=== PATIENT | female | born 1990 | race Caucasian/White ===

== ENCOUNTER 2018-07-09 13:17 | Emergency (ER) | payer OTHER, SELFPAY ==
[2018-07-09 13:34] VITALS: BP 105/69; PULSE 113; RESP 20; TEMP 36.9; O2SAT 97
--- NOTE | 2018-07-09 15:12 | ED.SKABFB ---
HPI - Skin/Abscess/Foreign Bdy <KALI Murry - Last Filed: 07/09/18 22:06> General Chief complaint: Skin/Abscess/Foreign Body Stated complaint: BAD MASTITIS Time Seen by Provider: 07/09/18 15:12 Source: patient Mode of arrival: ambulatory Limitations: no limitations History of Present Illness HPI narrative: 28-year-old female history of is a nonsmoker. She is currently 12 weeks . She had triplets via as 12 weeks ago at . She reports that she has had increased pain and redness to her left breast since yesterday. She called down to and they prescribed her dicloxacillin she states she has been taking that for 24 hr and her states her symptoms has worsened. She is able to express milk. She states she has had fever and chills as well. Positive p.o. intake. She denies any urinary symptoms. She denies any abdominal pain. No chest pain no shortness of breath Related Data Home Medications Medication Instructions Recorded Confirmed PNV cmb#95-ferrous fumarate-FA 1 tab PO QPM 07/09/18 07/10/18 [] [place]/Lecithin 1 tab PO DAILY 07/09/18 07/10/18 dicloxacillin 500 mg PO QID 07/09/18 07/10/18 Allergies Allergy/AdvReac Type Severity Reaction Status Date / Time No Known Drug Allergies Allergy Verified 07/10/18 09:33 Review of Systems <KALI Murry - Last Filed: 07/09/18 22:06> Constitutional Reports chills, Reports fever(s), Denies lethargy and Denies weakness Eyes Denies change in vision, Denies eye discharge, Denies irritation and Denies loss of vision ENT Ears, Nose, Mouth, and Throat: Denies change in voice, Denies neck pain and Denies sore throat Cardiovascular Denies chest pain, Denies irregular heart rhythm, Denies lightheadedness, Denies palpitations, Denies dyspnea, Denies dyspnea on exertion and Denies orthopnea Respiratory Denies cough, Denies dyspnea, Denies dyspnea on exertion and Denies wheezing Genitourinary Denies hematuria, Denies flank pain, Denies urinary incontinence and Denies urinary urgency Musculoskeletal Denies neck pain Integumentary/Breasts Comments: Redness and pain into her left breast Neurologic Denies confusion, Denies loss of vision and Denies weakness Psychiatric Denies anxiety, Denies confusion, Denies depression, Denies homicidal ideation and Denies suicidal ideation Endocrine Denies palpitations Hematologic/Lymphatic Denies easy bruising Allergic/Immunologic Denies wheezing Exam <KALI Murry - Last Filed: 07/09/18 22:06> Initial Vital Signs Initial Vital Signs: Vital Signs Temperature 98.5 F 07/09/18 13:34 Pulse Rate 113 H 07/09/18 13:34 Respiratory Rate 07/09/18 13:34 Blood Pressure 105/69 07/09/18 13:34 Pulse Oximetry 97 07/09/18 13:34 Const General: cooperative and well developed Nutritional Appearance: well nourished Orientation: alert, awake, oriented x3 and not confused HENMT Mouth: oral mucosae normal, oropharynx normal and moist mucous membranes Eyes Conjunctivae: conjunctivae normal Sclera: sclerae normal Pupils: PERRL EOM: EOM intact bilaterally Neck Neck: normal visual inspection, trachea midline, No lymphadenopathy, No midline deformity and No JVD Lymphatic: No lymphedema Chest Breast inspection: abnormal inspection of the breast Other: Left breast with pain and redness to the 12 o'clock position of the breast. There is firmness to that area no fluctuance or induration appreciated. No nipple discharge Resp Effort & Inspection: normal respiratory effort, able to speak in complete sentences, no respiratory distress and no use of accessory muscles Auscultation: clear to auscultation bilaterally, no rales, no rhonchi and no wheezes Cardio Rate: regular rate Rhythm: regular rhythm Heart Sounds: no click, no gallops, no murmurs and no rubs Pulses: normal peripheral pulses Neuro General: alert, oriented x3, gait normal and no focal motor deficits Speech: speech normal <Susu Edouard DO - Last Filed: 07/12/18 08:12> Initial Vital Signs Initial Vital Signs: Vital Signs Temperature 98.5 F 07/09/18 13:34 Pulse Rate 113 H 07/09/18 13:34 Respiratory Rate 07/09/18 13:34 Blood Pressure 105/69 07/09/18 13:34 Pulse Oximetry 97 07/09/18 13:34 Course <KALI Murry Last Filed: 07/09/18 22:06> Orders Ordered: Discontinued Medications Acetaminophen (Tylenol) 650 mg PO NOW ONE Stop: 07/09/18 18:19 Last Admin: 07/09/18 18:29 Dose: 650 mg Sodium Chloride (Normal Saline 0.9%) 500 mls @ 1,000 mls/hr IV BOLUS ONE Stop: 07/09/18 16:43 Last Infusion: 07/09/18 18:38 Dose: 0 mls/hr Admin: 07/09/18 16:36 Dose: 1,000 mls/hr Clindamycin Phosphate (Cleocin) 600 mg in 50 mls @ 50 mls/hr IV NOW ONE Stop: 07/09/18 18:09 Last Infusion: 07/09/18 18:24 Dose: 0 mls/hr Admin: 07/09/18 17:25 Dose: 50 mls/hr Potassium Chloride (Klor-Con M20) 20 meq PO DAILYCC [facility] Last Admin: 07/09/18 18:31 Dose: 20 meq Vital Signs - 8 hr 07/09/18 16:28 07/09/18 17:41 07/09/18 19:40 Temperature 100.6 F H 101.8 F H Pulse Rate 103 H 108 H 121 H Respiratory Rate 16 16 15 Blood Pressure 109/63 Blood Pressure [Left Arm] 108/61 124/70 Pulse Oximetry 100 100 97 <Susu Edouard DO - Last Filed: 07/12/18 08:12> Orders Ordered: Discontinued Medications Acetaminophen (Tylenol) 650 mg PO NOW ONE Stop: 07/09/18 18:19 Last Admin: 07/09/18 18:29 Dose: 650 mg Sodium Chloride (Normal Saline 0.9%) 500 mls @ 1,000 mls/hr IV BOLUS ONE Stop: 07/09/18 16:43 Last Infusion: 07/09/18 18:38 Dose: 0 mls/hr Admin: 07/09/18 16:36 Dose: 1,000 mls/hr Clindamycin Phosphate (Cleocin) 600 mg in 50 mls @ 50 mls/hr IV NOW ONE Stop: 07/09/18 18:09 Last Infusion: 07/09/18 18:24 Dose: 0 mls/hr Admin: 07/09/18 17:25 Dose: 50 mls/hr Potassium Chloride (Klor-Con M20) 20 meq PO DAILYCC [facility] Last Admin: 07/09/18 18:31 Dose: 20 meq Vital Signs - 8 hr 07/09/18 16:28 07/09/18 17:41 07/09/18 19:40 Temperature 100.6 F H 101.8 F H Pulse Rate 103 H 108 H 121 H Respiratory Rate 16 16 15 Blood Pressure 109/63 Blood Pressure [Left Arm] 108/61 124/70 Pulse Oximetry 100 100 97 MDM - Skin/Abscess/Foreign Bdy <KALI Murry - Last Filed: 07/09/18 22:06> Lab Data Result diagrams: 07/09/18 16:10 07/09/18 16:10 Lab Results 07/09/18 07/09/18 07/09/18 Range/Units 16:10 16:10 16:10 WBC 13.6 H (4.5-11.0) X10^3/uL RBC 4.93 (4.0-5.2) X10^6/uL Hgb 13.7 (12.0-16.0) g/dL Hct 41.1 (36-46) % MCV 83.4 (80-100) fL MCH 27.7 (26-34) PG MCHC 33.2 (30-36) % RDW 15.3 H (11.6-14.8) % Plt Count 176 (150-400) X10^3/uL Neut % (Auto) 77.9 H (50-75) % Lymph % (Auto) 13.3 L (25-40) % [place] % (Auto) 8.1 (3-14) % Eos % (Auto) 0.5 L (2-4) % Baso % (Auto) 0.2 (0-2) % Neut # (Auto) 14629 H (6492-1851) /uL Sodium 143 (137-145) mmol/L Potassium 3.3 L (3.4-5.1) mmol/L Chloride 105 (98-107) mmol/L Carbon Dioxide 26 (22-32) mmol/L BUN 12 (7-17) mg/dL Creatinine 0.60 (0.52-1.04) mg/dL Estimated GFR > 60.0 (>60) mL/min BUN/Creatinine Ratio 20.0 (6-22) Glucose 112 H (70-100) mg/dL Lactate (0.7-2.1) mmol/L Calcium 8.8 (8.4-10.2) mg/dL Total Bilirubin 0.3 (0.2-1.3) mg/dL AST 26 (14-36) IU/L ALT 30 (9-52) IU/L Alkaline Phosphatase 116 (38-126) U/L Total Protein 7.2 (6.3-8.2) g/dL Albumin 4.4 (3.5-5.0) g/dL Globulin 2.8 (1.7-4.1) g/dL Albumin/Globulin Ratio 1.6 (1.0-2.8) Procalcitonin 0.06 (<0.5) ng/mL 07/09/18 Range/Units 16:10 WBC (4.5-11.0) X10^3/uL RBC (4.0-5.2) X10^6/uL Hgb (12.0-16.0) g/dL Hct (36-46) % MCV (80-100) fL MCH (26-34) PG MCHC (30-36) % RDW (11.6-14.8) % Plt Count (150-400) X10^3/uL Neut % (Auto) (50-75) % Lymph % (Auto) (25-40) % [place] % (Auto) (3-14) % Eos % (Auto) (2-4) % Baso % (Auto) (0-2) % Neut # (Auto) (1410-3339) /uL Sodium (137-145) mmol/L Potassium (3.4-5.1) mmol/L Chloride (98-107) mmol/L Carbon Dioxide (22-32) mmol/L BUN (7-17) mg/dL Creatinine (0.52-1.04) mg/dL Estimated GFR (>60) mL/min BUN/Creatinine Ratio (6-22) Glucose (70-100) mg/dL Lactate 1.0 (0.7-2.1) mmol/L Calcium (8.4-10.2) mg/dL Total Bilirubin (0.2-1.3) mg/dL AST (14-36) IU/L ALT (9-52) IU/L Alkaline Phosphatase (38-126) U/L Total Protein (6.3-8.2) g/dL Albumin (3.5-5.0) g/dL Globulin (1.7-4.1) g/dL Albumin/Globulin Ratio (1.0-2.8) Procalcitonin (<0.5) ng/mL Urine Dip Bedside Urine Glucose Negative Bedside Urine Bilirubin - Negative Bedside Urine Ketone + 15 Urine Specific [place] 1.015 Bedside Urine Occult Blood ++ Bedside Urine pH 6.0 Bedside Urine Protein - Negative Bedside Urine Urobilinogen - Negative Bedside Urine Nitrite - Negative Bedside Urine Leukocytes - Negative Esterase MDM Narrative Medical decision making narrative: CBC shows elevated white count of 13.6. Chem panel shows hypokalemia of 3.3. Ultrasound of the left breast was obtained and shows echogenic area to the area of erythema to the left breast. I was contacted by Radiology who states that is suspicious for a breast abscess discussed case with surgery Dr. Santos who came and evaluated patient. He states that he will follow up with her tomorrow. She was given clindamycin IV in the emergency room. Milk cultures and blood cultures are pending. [id number] Tylenol as needed for any discomfort. Plenty of fluids. For any worsening symptoms return to the emergency room. Follow up with primary care provider. Follow up with surgery. <Susu Edouard, DO - Last Filed: 07/12/18 08:12> Lab Data Lab Results 07/09/18 07/09/18 07/09/18 Range/Units 16:10 16:10 16:10 WBC 13.6 H (4.5-11.0) X10^3/uL RBC 4.93 (4.0-5.2) X10^6/uL Hgb 13.7 (12.0-16.0) g/dL Hct 41.1 (36-46) % MCV 83.4 (80-100) fL MCH 27.7 (26-34) PG MCHC 33.2 (30-36) % RDW 15.3 H (11.6-14.8) % Plt Count 176 (150-400) X10^3/uL Neut % (Auto) 77.9 H (50-75) % Lymph % (Auto) 13.3 L (25-40) % [place] % (Auto) 8.1 (3-14) % Eos % (Auto) 0.5 L (2-4) % Baso % (Auto) 0.2 (0-2) % Neut # (Auto) 86861 H (3069-5140) /uL Sodium 143 (137-145) mmol/L Potassium 3.3 L (3.4-5.1) mmol/L Chloride 105 (98-107) mmol/L Carbon Dioxide 26 (22-32) mmol/L BUN 12 (7-17) mg/dL Creatinine 0.60 (0.52-1.04) mg/dL Estimated GFR > 60.0 (>60) mL/min BUN/Creatinine Ratio 20.0 (6-22) Glucose 112 H (70-100) mg/dL Lactate (0.7-2.1) mmol/L Calcium 8.8 (8.4-10.2) mg/dL Total Bilirubin 0.3 (0.2-1.3) mg/dL AST 26 (14-36) IU/L ALT 30 (9-52) IU/L Alkaline Phosphatase 116 (38-126) U/L Total Protein 7.2 (6.3-8.2) g/dL Albumin 4.4 (3.5-5.0) g/dL Globulin 2.8 (1.7-4.1) g/dL Albumin/Globulin Ratio 1.6 (1.0-2.8) Procalcitonin 0.06 (<0.5) ng/mL 07/09/18 Range/Units 16:10 WBC (4.5-11.0) X10^3/uL RBC (4.0-5.2) X10^6/uL Hgb (12.0-16.0) g/dL Hct (36-46) % MCV (80-100) fL MCH (26-34) PG MCHC (30-36) % RDW (11.6-14.8) % Plt Count (150-400) X10^3/uL Neut % (Auto) (50-75) % Lymph % (Auto) (25-40) % [place] % (Auto) (3-14) % Eos % (Auto) (2-4) % Baso % (Auto) (0-2) % Neut # (Auto) (0535-6393) /uL Sodium (137-145) mmol/L Potassium (3.4-5.1) mmol/L Chloride (98-107) mmol/L Carbon Dioxide (22-32) mmol/L BUN (7-17) mg/dL Creatinine (0.52-1.04) mg/dL Estimated GFR (>60) mL/min BUN/Creatinine Ratio (6-22) Glucose (70-100) mg/dL Lactate 1.0 (0.7-2.1) mmol/L Calcium (8.4-10.2) mg/dL Total Bilirubin (0.2-1.3) mg/dL AST (14-36) IU/L ALT (9-52) IU/L Alkaline Phosphatase (38-126) U/L Total Protein (6.3-8.2) g/dL Albumin (3.5-5.0) g/dL Globulin (1.7-4.1) g/dL Albumin/Globulin Ratio (1.0-2.8) Procalcitonin (<0.5) ng/mL Urine Dip Bedside Urine Glucose Negative Bedside Urine Bilirubin - Negative Bedside Urine Ketone + 15 Urine Specific [place] 1.015 Bedside Urine Occult Blood ++ Bedside Urine pH 6.0 Bedside Urine Protein - Negative Bedside Urine Urobilinogen - Negative Bedside Urine Nitrite - Negative Bedside Urine Leukocytes - Negative Esterase Discharge Plan Departure Patient Disposition: Home Clinical Impression: Mastitis, Acute hypokalemia Discharge Date/Time: 07/09/18 19:42 Interventions: ED Discharge Assessment Last Done: 07/09/18 19:40 Instructions: DI for Mastitis Activity Restrictions/Additional Instructions: Laboratory results show elevated white count and low potassium otherwise are unremarkable. You were given potassium in the emergency room. IV antibiotics were given in the emergency room was wall follow-up with surgery tomorrow as scheduled. Take antibiotics as prescribed. Use [id number] Tylenol as needed for discomfort. For any worsening symptoms return to the emergency room. Plenty of fluids. Prescriptions: No Action dicloxacillin 500 mg Capsule 500 mg PO QID RF: 0 PNV cmb#95-ferrous fumarate-FA [] 28 mg iron- 800 mcg Tablet 1 tab PO QPM RF: 0 [place]/Lecithin 1 tab PO DAILY RF: 0 Referrals: Alonso Santos MD [Physician] - Anastacio Walker MD [Primary Care Provider] - <Susu Edouard DO - Last Filed: 07/12/18 08:12> Cosign ED Attending Cosignature Attestation: I was immediately available in the department for consultation. This documentation has been reviewed and I agree with assessment and plan. Supervised by Susu Edouard DO
--- NOTE | 2018-07-09 15:50 | DI.US.S_ITS ---
ULTRASOUND OF LEFT BREAST: 07/09/2018 CLINICAL: Focal left breast pain. and redness upper half of left breast. No prior exams were available for comparison. There is an ill-defined hypoechoic region within the left breast at 12:00 4 cm from the nipple which demonstrates diffuse edema. Within this region 2 discrete loculated fluid collections are noted. There is vascularity around the fluid collections. IMPRESSION: NEGATIVE There is no sonographic evidence of malignancy. Sonographic findings consistent with complex mastitis likely with loculated abscesses. These findings were discussed with KALI Murry at 4:35 PM on 07/09/18. This exam was interpreted at Station ID: [id number]. Electronically Signed By: Ivon Carbajal M.D. lk/:07/09/2018 16:57:21 Ultrasound BI-RADS: 1 Negative
[2018-07-09 16:28] VITALS: BP 108/61; PULSE 103; RESP 16; TEMP 38.1; O2SAT 100
[2018-07-09 16:32] LABS: Add Manual Diff / Slide Review NO; Basophils Percent Auto 0.2 % (0-2); Eosinophils Percent Auto 0.5 % (2-4); Hematocrit 41.1 % (36-46); Hemoglobin 13.7 g/dL (12.0-16.0); Lymphocytes Percent Auto 13.3 % (25-40); Mean Corpuscular HGB Conc 33.2 % (30-36); Mean Corpuscular Hemoglobin 27.7 PG (26-34); Mean Corpuscular Volume 83.4 fL (80-100); Monocytes Percent Auto 8.1 % (3-14); Neutrophils Absolute Auto 10600 /uL (3000-5900); Neutrophils Percent Auto 77.9 % (50-75); Platelet Count 176 X10^3/uL (150-400); Red Blood Cell Count 4.93 X10^6/uL (4.0-5.2); Red Cell Distribution Width 15.3 % (11.6-14.8); White Blood Cell Count 13.6 X10^3/uL (4.5-11.0)
[2018-07-09] MEDS: SODIUM CHLORIDE 0.9% 500 ML 1000 ML IV (16:36)
[2018-07-09 16:46] LABS: Alanine Aminotransferase 30 IU/L (9-52); Albumin 4.4 g/dL (3.5-5.0); Albumin Globulin Ratio 1.6 (1.0-2.8); Alkaline Phosphatase 116 U/L (38-126); Aspartate Aminotransferase 26 IU/L (14-36); Bilirubin Total 0.3 mg/dL (0.2-1.3); Blood Urea Nitrogen 12 mg/dL (7-17); Calcium 8.8 mg/dL (8.4-10.2); Carbon Dioxide 26 mmol/L (22-32); Chloride 105 mmol/L (98-107); Estimated Glomerular Filt Rate > 60.0 mL/min (>60); Globulin 2.8 g/dL (1.7-4.1); Glucose 112 mg/dL (70-100); HEMOLYSIS < 15 (0-50); Potassium 3.3 mmol/L (3.4-5.1); Sodium 143 mmol/L (137-145); Total Protein 7.2 g/dL (6.3-8.2)
[2018-07-09 17:10] LABS: Procalcitonin 0.06 ng/mL (<0.5)
--- NOTE | 2018-07-09 17:17 | PC.NURSE ---
standby assist for Geronimo Troy.
--- NOTE | 2018-07-09 17:19 | PC.NURSE ---
stand by assist for Dirk BASS
[2018-07-09] MEDS: CLINDAMYCIN 600 MG/50 ML PIGGYBACK 50 MG IV (17:25)
[2018-07-09 17:41] VITALS: BP 124/70; PULSE 108; RESP 16; O2SAT 100
--- NOTE | 2018-07-09 17:44 | PM.CN ---
History of Present Illness Date Patient Seen: 07/09/18 Time Patient Seen: 17:44 Chief complaint: BAD MASTITIS Reason for consult: Pain, erythema, and swelling of left breast Requesting provider: Dirk Hagan Narrative: 28-year-old otherwise healthy female 12 weeks after section with triplets who has been breast feeding now presents the emergency department with a 36 hr history of progressive pain, erythema, and swelling of the left breast. No skin drainage. She has been feeding and breast pumping without issues other than the pain and tenderness. However, she developed a fever to 100.6? this afternoon and has been feeling fatigued. She therefore presented to the emergency department for further evaluation. She had contacted her car starter's office at [facility] yesterday and was placed on dicloxacillin. She has taken 4 or 5 doses of the medication since then. She denies any nausea or vomiting. She has been taking Tylenol and Advil throughout the day today with some relief of her fever and discomfort. Evaluation including ultrasound in the emergency department suggest possible breast abscess. Surgical consultation is now obtained. [facility] Medical History History of in vitro fertilization (Acute) Surgical History Status post section (Acute) Status post loop electrosurgical excision procedure (LEEP) of cervix Family History Grandfather Age: 97 Alzheimer's disease Grandmother Age: 92 Hypertension Mental health problem Grandfather Parkinson's disease Social History Smoking Status: Never smoker Meds Home Medications Medication Instructions Recorded Confirmed Type PNV cmb#95-ferrous fumarate-FA 1 tab PO QPM 07/09/18 07/09/18 History [] Lucas/Lecithin 1 tab PO DAILY 07/09/18 07/09/18 History dicloxacillin 500 mg PO QID 07/09/18 07/09/18 History Allergies Allergy/AdvReac Type Severity Reaction Status Date / Time No Known Drug Allergies Allergy Verified 07/09/18 13:37 Review of Systems Review of Systems All systems reviewed & are unremarkable except as noted in HPI and below Exam Vital Signs (past 8 hours): - 07/09/18 13:34 07/09/18 16:28 07/09/18 17:41 Temperature 98.5 F 100.6 F H Pulse Rate 113 H 103 H 108 H Respiratory Rate 20 16 16 Blood Pressure 105/69 Blood Pressure [Left Arm] 108/61 124/70 Pulse Oximetry 97 100 100 Oxygen Delivery Method Room Air Narrative Exam Narrative: Entire examination is performed with the assistance of the nurse talent rep, [place] Well-nourished well-developed female in no acute distress. She has just completed bilateral breast pumping prior to my examination. Vital signs as above Sclera nonicteric Regular rate and rhythm other than the sinus tachycardia Focused left breast examination shows mild edema of the anterior skin with associated erythema around the nipple complex extending superiorly. No nipple retraction. There is clearly fullness in the upper portion of the breast within the anterior midline but no obvious fluctuance. Area is tender to palpation. No other masses or abnormalities. Right breast examination is deferred. Abdomen shows midline striae and small umbilical hernia but otherwise unremarkable Extremities show no clubbing, cyanosis, or edema Objective Labs Result Diagrams: 07/09/18 16:10 07/09/18 16:10 Labs: Laboratory Results - last 24 hr 07/09/18 07/09/18 07/09/18 16:10 16:10 16:10 WBC 13.6 H RBC 4.93 Hgb 13.7 Hct 41.1 MCV 83.4 MCH 27.7 MCHC 33.2 RDW 15.3 H Plt Count 176 Neut % (Auto) 77.9 H Lymph % (Auto) 13.3 L [place] % (Auto) 8.1 Eos % (Auto) 0.5 L Baso % (Auto) 0.2 Neut # (Auto) 65355 H Sodium 143 Potassium 3.3 L Chloride 105 Carbon Dioxide 26 BUN 12 Creatinine 0.60 Estimated GFR > 60.0 BUN/Creatinine Ratio 20.0 Glucose 112 H Lactate Calcium 8.8 Total Bilirubin 0.3 AST 26 ALT 30 Alkaline Phosphatase 116 Total Protein 7.2 Albumin 4.4 Globulin 2.8 Albumin/Globulin Ratio 1.6 Procalcitonin 0.06 07/09/18 16:10 WBC RBC Hgb Hct MCV MCH MCHC RDW Plt Count Neut % (Auto) Lymph % (Auto) [place] % (Auto) Eos % (Auto) Baso % (Auto) Neut # (Auto) Sodium Potassium Chloride Carbon Dioxide BUN Creatinine Estimated GFR BUN/Creatinine Ratio Glucose Lactate 1.0 Calcium Total Bilirubin AST ALT Alkaline Phosphatase Total Protein Albumin Globulin Albumin/Globulin Ratio Procalcitonin I have personally reviewed the limited left breast ultrasound with staff radiologist, Dr. Levine. Findings suggest possible phlegmon as there is not a clear fluid collection. However, there may be some scant fluid within the hyperechoic regions of a 2.6 cm area of the breast at the 12 o'clock position. Assessment & Plan Plan: Assessment/Plan Narrative: 28-year-old female with left breast phlegmon, possible abscess, and mastitis. At this point I do not appreciate a discrete abscess for targeted aspiration or incision and drainage. I recommend ongoing treatment with her dicloxacillin, Tylenol, and Advil. She will receive a dose of intravenous clindamycin here in the emergency department. Encourage hydration. She may continue to breast-feed and pump as per her usual regimen from my perspective. I will see her 1st thing in the morning in the office for short-term follow-up. I instructed her to be NPO status after midnight tonight, however, in the event that she requires incision and drainage in the operating room under anesthesia. She voiced understanding. Office information was provided to her. We discussed the option of aspiration either with or without ultrasound guidance, but in my experience this is not particularly therapeutic for these types of infections. Technical details of an incision and drainage procedure were discussed. We also briefly discussed wound care in the form of daily packing changes. All questions were answered to her satisfaction, and she voiced understanding. I discussed the case with the attending emergency room staff. Hopefully she will continue to improve with the above non operative measures. Orders were written. We will proceed as above.
--- NOTE | 2018-07-09 17:54 | P.CONS_ITS ---
History of Present Illness Date Patient Seen: 07/09/18 Time Patient Seen: 17:44 Chief complaint: BAD MASTITIS Reason for consult: Pain, erythema, and swelling of left breast Requesting provider: Dirk Hagan Narrative: 28-year-old otherwise healthy female 12 weeks after section with triplets who has been breast feeding now presents the emergency department with a 36 hr history of progressive pain, erythema, and swelling of the left breast. No skin drainage. She has been feeding and breast pumping without issues other than the pain and tenderness. However, she developed a fever to 100.6? this afternoon and has been feeling fatigued. She therefore presented to the emergency department for further evaluation. She had contacted her compliance consultant's office at [facility] yesterday and was placed on dicloxacillin. She has taken 4 or 5 doses of the medication since then. She denies any nausea or vomiting. She has been taking Tylenol and Advil throughout the day today with some relief of her fever and discomfort. Evaluation including ultrasound in the emergency department suggest possible breast abscess. Surgical consultation is now obtained. [facility] Medical History History of in vitro fertilization (Acute) Surgical History Status post section (Acute) Status post loop electrosurgical excision procedure (LEEP) of cervix Family History Grandfather Age: 97 Alzheimer's disease Grandmother Age: 92 Hypertension Mental health problem Grandfather Parkinson's disease Social History Smoking Status: Never smoker Meds Home Medications Medication Instructions Recorded Confirmed Type PNV cmb#95-ferrous fumarate-FA 1 tab PO QPM 07/09/18 07/09/18 History [] [place]/Lecithin 1 tab PO DAILY 07/09/18 07/09/18 History dicloxacillin 500 mg PO QID 07/09/18 07/09/18 History Allergies Allergy/AdvReac Type Severity Reaction Status Date / Time No Known Drug Allergies Allergy Verified 07/09/18 13:37 Review of Systems Review of Systems All systems reviewed & are unremarkable except as noted in HPI and below Exam Vital Signs (past 8 hours): - 07/09/18 13:34 07/09/18 16:28 07/09/18 17:41 Temperature 98.5 F 100.6 F H Pulse Rate 113 H 103 H 108 H Respiratory Rate 20 16 16 Blood Pressure 105/69 Blood Pressure [Left Arm] 108/61 124/70 Pulse Oximetry 97 100 100 Oxygen Delivery Method Room Air Narrative Exam Narrative: Entire examination is performed with the assistance of the nurse surfboard designer, [place] Well-nourished well-developed female in no acute distress. She has just completed bilateral breast pumping prior to my examination. Vital signs as above Sclera nonicteric Regular rate and rhythm other than the sinus tachycardia Focused left breast examination shows mild edema of the anterior skin with associated erythema around the nipple complex extending superiorly. No nipple retraction. There is clearly fullness in the upper portion of the breast within the anterior midline but no obvious fluctuance. Area is tender to palpation. No other masses or abnormalities. Right breast examination is deferred. Abdomen shows midline striae and small umbilical hernia but otherwise unremarkable Extremities show no clubbing, cyanosis, or edema Objective Labs Result Diagrams: 07/09/18 16:10 07/09/18 16:10 Labs: Laboratory Results - last 24 hr 07/09/18 07/09/18 07/09/18 16:10 16:10 16:10 WBC 13.6 H RBC 4.93 Hgb 13.7 Hct 41.1 MCV 83.4 MCH 27.7 MCHC 33.2 RDW 15.3 H Plt Count 176 Neut % (Auto) 77.9 H Lymph % (Auto) 13.3 L Dolores % (Auto) 8.1 Eos % (Auto) 0.5 L Baso % (Auto) 0.2 Neut # (Auto) 41539 H Sodium 143 Potassium 3.3 L Chloride 105 Carbon Dioxide 26 BUN 12 Creatinine 0.60 Estimated GFR > 60.0 BUN/Creatinine Ratio 20.0 Glucose 112 H Lactate Calcium 8.8 Total Bilirubin 0.3 AST 26 ALT 30 Alkaline Phosphatase 116 Total Protein 7.2 Albumin 4.4 Globulin 2.8 Albumin/Globulin Ratio 1.6 Procalcitonin 0.06 07/09/18 16:10 WBC RBC Hgb Hct MCV MCH MCHC RDW Plt Count Neut % (Auto) Lymph % (Auto) Dolores % (Auto) Eos % (Auto) Baso % (Auto) Neut # (Auto) Sodium Potassium Chloride Carbon Dioxide BUN Creatinine Estimated GFR BUN/Creatinine Ratio Glucose Lactate 1.0 Calcium Total Bilirubin AST ALT Alkaline Phosphatase Total Protein Albumin Globulin Albumin/Globulin Ratio Procalcitonin I have personally reviewed the limited left breast ultrasound with staff radiologist, Dr. Levine. Findings suggest possible phlegmon as there is not a clear fluid collection. However, there may be some scant fluid within the hyperechoic regions of a 2.6 cm area of the breast at the 12 o'clock position. Assessment & Plan Plan: Assessment/Plan Narrative: 28-year-old female with left breast phlegmon, possible abscess, and mastitis. At this point I do not appreciate a discrete abscess for targeted aspiration or incision and drainage. I recommend ongoing treatment with her dicloxacillin, Tylenol, and Advil. She will receive a dose of intravenous clindamycin here in the emergency department. Encourage hydration. She may continue to breast- feed and pump as per her usual regimen from my perspective. I will see her 1st thing in the morning in the office for short-term follow-up. I instructed her to be NPO status after midnight tonight, however, in the event that she requires incision and drainage in the operating room under anesthesia. She voiced understanding. Office information was provided to her. We discussed the option of aspiration either with or without ultrasound guidance, but in my experience this is not particularly therapeutic for these types of infections. Technical details of an incision and drainage procedure were discussed. We also briefly discussed wound care in the form of daily packing changes. All questions were answered to her satisfaction, and she voiced understanding. I discussed the case with the attending emergency room staff. Hopefully she will continue to improve with the above non operative measures. Orders were written. We will proceed as above.
[2018-07-09] MEDS: ACETAMINOPHEN 325 MG TABLET 650 MG PO (18:29)
[2018-07-09] MEDS: POTASSIUM CHLORIDE 20 MEQ TAB PO (18:31)
[2018-07-09 19:40] VITALS: BP 109/63; PULSE 121; RESP 15; TEMP 38.8; O2SAT 97
== END 2018-07-09 19:42 | disposition home or self-care (01) ==
PROVIDERS: Emergency Provider Nurse Practitioner Family
DX: N61.0 Mastitis without abscess (principal); E87.6 Hypokalemia
CPT/HCPCS: 36415; 36591; 76642; 80053; 81003; 83605; 84145; 85025; 87040; 96361; 96365; 99283; 99284